=== PATIENT | female | born 1950 | race Caucasian/White ===

== ENCOUNTER → 2016-09-03 | Outpatient (CLI) | payer SELFPAY ==
[~2016-09-03] MED LIST: CATHETER FLUSH 10 ML SYR IV PRN; IOHEXOL 350 MG/ML 100 ML (OMNIPAQUE 350) VIAL IV ONE; NS 100 ML (IVPB) BAG IV ONE
== END ==
LOC: RAD 10:47
PROVIDERS: ATTEND Nurse Practitioner Family
DX: J43.9 Emphysema, unspecified (principal)

== ENCOUNTER → 2017-07-22 | Outpatient (CLI) | payer MEDICARE, MEDICAID ==
--- NOTE | 2017-07-22 14:06 | Diagnostic Imaging Report ---
INDICATION: Osteoporosis. COMPARISON is made with a prior exam from 06/13/2015. EXAM: Bone mineral analysis of the lumbar spine and both hips was performed. FINDINGS: The bone mineral density of the lumbar spine at L2-L4 is 0.827 with T score -3.1. This compares with 0.796 and -3.4. The bone mineral density of the left femoral neck is 0.771 with a T score -1.9. This compares to 0.807 and -1.7. Bone mineral density right femoral neck is 0.745 with a T score of -2.1. This compares with 0.733 and -2.2. IMPRESSION: Osteoporosis of the lumbar spine and osteopenia of the bilateral femoral necks. Dictated by: Dictated on workstation # [id number]
== END ==
LOC: RAD 07:59
PROVIDERS: ATTEND Nurse Practitioner Family
DX: M81.0 Age-related osteoporosis without current pathological fracture (principal); M85.88 Other specified disorders of bone density and structure, other site
CPT/HCPCS: 77080